=== PATIENT | female | born 1980 | race Caucasian/White ===

== ENCOUNTER 2016-09-13 10:22 | Observation (INO) | payer MEDICAID ==
[2016-09-13] MEDS ORDERED: LORazepam 1 MG TABLET ONE (10:45)
[2016-09-13 10:55] LABS: BASOPHILS 0.5 % (0.0-2.0); EOSINOPHILS 0.9 % (0.0-6.0); EOSINOPHILS# 0.1 X 10^3uL (0.0-0.4); HEMATOCRIT 46.7 % (36.0-48.0); HEMOGLOBIN 15.6 g/dL (12.0-16.0); LYMPHOCYTES 13.5 % (20.0-40.0); LYMPHOCYTES# 1.2 X 10^3uL (0.8-3.8); MEAN CELL VOLUME 90.8 fL (80.0-100.0); MEAN CORPUS. HGB CONCENTRATION 33.3 g/dL (32.0-36.0); MEAN CORPUSCULAR HEMOGLOBIN 30.2 pg (29.0-35.0); MEAN PLATELET VOLUME 7.9 fL (7.4-10.4); MONOCYTES 4.6 % (2.0-10.0); MONOCYTES# 0.4 X 10^3uL (0.2-1.0); NEUTROPHILS 80.5 % (54.0-75.0); NEUTROPHILS# 6.9 X 10^3uL (2.6-6.7); PLATELET COUNT 188 X 10^3uL (130-440); RED BLOOD COUNT 5.15 X 10^6uL (4.20-6.10); RED CELL DISTRIBUTION WIDTH 12.5 % (11.5-14.5); WHITE BLOOD COUNT 8.6 X 10^3uL (3.9-10.7)
[2016-09-13] MEDS ORDERED: ONDANSETRON HCL 4 MG/2 ML VIAL ONE (11:03)
[2016-09-13] MEDS ORDERED: DIPHENHYDRAMINE 50 MG/ML VIAL ONE (11:03)
[2016-09-13 11:21] LABS: ALBUMIN 3.8 g/dL (3.5-5.0); ALKALINE PHOSPHATASE 69 U/L (38-126); ALT 41 U/L (9-52); AST 27 U/L (14-36); BILIRUBIN, DIRECT 0.1 mg/dL (0.0-0.4); BILIRUBIN, TOTAL 0.7 mg/dL (0.2-1.3); BLOOD UREA NITROGEN 17 mg/dL (7-17); CALCIUM 8.8 mg/dL (8.4-10.2); CHLORIDE 110 mmol/L (98-107); EST GLOMERULAR FILTRATION RATE > 60 mL/min; GLUCOSE 122 mg/dL (70-100); LIPASE 42 U/L (23-300); POTASSIUM 4.2 mmol/L (3.5-5.1); SODIUM 139 mmol/L (137-145); TOTAL PROTEIN 6.9 g/dL (6.3-8.2)
[2016-09-13] MEDS ORDERED: NORMAL SALINE 250 ML IV ONE (11:53)
[2016-09-13] MEDS ORDERED: FAMOTIDINE IN SALINE, ISO-OSM 20 MG/50 ML PIGGYBACK IV ONE (12:25)
[2016-09-13] MEDS ORDERED: HOME MEDICATION LIST NEEDED 1 EA EACH MC ONE (14:15)
[2016-09-13] MEDS ORDERED: ONDANSETRON HCL 4 MG/2 ML VIAL IV PRN (14:17)
--- NOTE | 2016-09-13 14:39 | ER PHYSICIAN DOCUMENTATION ---
Physician Documentation [facility] Name:Marian Estevez Age:35 yrs Sex:Female :1980 Arrival Date:09/13/2016 Time:10:22 Bed3 Private MD: Chriss Galindo Disposition: 09/13/16 14:11 Admit ordered for Hung Laguna. Preliminary diagnosis are Intractable Vomiting - : due to Cyclic Vomiting, Dehydration, Abdominal Pain, Unspecified. - Bed requested for Medical/Surgical. - Condition is Fair. - Problem is new. - Symptoms have improved. 23 HR OBS Yes HPI: 09/13 10:30 This 35 yrs old Female presents to ER via Walk In with complaints of cd Intractable Vomiting. 10:30 The patient presents to the emergency department with nausea, that is severe, with cd vomiting, that is continuous, 20 times today, described as clear fluid, with associated abdominal pain, of the epigastric area, described as crampy, and does not radiate. Onset: The symptom(s)/episode began/occurred acutely, this morning. Possible causes: flare up of bowel problem, Patient has a history of Cyclic Vomiting. She states that this is typical for her and often requires admission.. The symptoms are aggravated by nothing. The symptoms are alleviated by nothing. Severity of symptoms: At their worst the symptoms were severe in the emergency department the symptoms are unchanged. The patient has experienced similar episodes in the past, and the symptoms today are exactly the same, to when the patient was apparently diagnosed with Cyclic Vomiting. DIRECTOR MEDIA: 11:10 LMP N/A - control method lpr Historical: - Allergies: No known drug Allergies; - Home Meds: 1. None - PMHx: cyclic vomiting; - PSHx: None; - Tetanus: unknown. - Ebola Screening: : No symptoms or risks identified at this time. . - Immunization history: Flu Vaccine unknown. - Social history: Smoking status: Patient states was never smoker of tobacco. ROS: 11:00 ENT: Negative for injury, pain, epistaxis and discharge. cd Neck: Negative for injury, pain, stiffness and swelling. Cardiovascular: Negative for chest pain, palpitations, edema and pleuritic pain. Respiratory: Negative for shortness of breath, dyspnea on exertion, cough, sputum production, wheezing, hemoptysis and pleuritic chest pain. Back: Negative for injury, pain or muscle spasms. : Negative for injury, bleeding, discharge, dysuria, frequency, urgency and swelling. MS/Extremity: Negative for injury, deformity, edema, calf tenderness, pain or coldness. Skin: Negative for injury, rash, itching and discoloration. 11:00 Neuro: Negative for weakness, numbness, tingling, and seizure. + headache cd 11:00 Constitutional: Positive for poor PO intake, Negative for chills, fever. 11:00 Abdomen/GI: Positive for abdominal pain, nausea, vomiting, abdominal cramps, anorexia, Negative for diarrhea, constipation, abdominal distension, hematemesis, black/tarry stool, rectal bleeding. 11:00 Psych: Positive for anxiety. 11:00 All other systems are negative. Exam: Head/Face: Normocephalic, atraumatic. Eyes: Pupils equal round and reactive to light, extra-ocular motions intact. Lids and lashes normal. Conjunctiva and sclera are non-icteric and not injected. Cornea within normal limits. Periorbital areas with no swelling, redness, or edema. ENT: Nares patent. No nasal discharge, no septal abnormalities noted. Tympanic membranes are normal and external auditory canals are clear. Oropharynx with no redness, swelling, or masses, exudates, or evidence of obstruction, uvula midline. Mucous membranes very dry. Neck: Trachea midline, no thyromegaly or masses palpated, and no cervical lymphadenopathy. Supple, full range of motion without nuchal rigidity, or vertebral point tenderness. No Meningismus. Respiratory: Lungs have equal breath sounds bilaterally, clear to auscultation and percussion. No rales, rhonchi or wheezes noted. No increased work of breathing, no retractions or nasal flaring. Back: No spinal tenderness. No costovertebral tenderness. Full range of motion. Skin: Warm, dry with normal turgor. Normal color with no rashes, no lesions, and no evidence of cellulitis. MS/ Extremity: Pulses equal, no cyanosis. Neurovascular intact. Full, normal range of motion. 11:00 Neuro: Awake and alert, GCS 15, oriented to person, place, time, and situation. cd Cranial nerves II-XII grossly intact. Motor strength 5/5 in all extremities. Sensory grossly intact. Cerebellar exam normal. Normal gait. 11:00 Constitutional: The patient appears alert, awake, non-diaphoretic, non-toxic, well developed, anxious, in obvious distress, severely distressed. 11:00 Cardiovascular: Rate: normal, Rhythm: regular, Pulses: no pulse deficits are appreciated, Heart sounds: normal. 11:00 Abdomen/GI: Inspection: abdomen appears normal, Bowel sounds: active, Palpation: mild abdominal tenderness, in the epigastric area, Indicators: McBurney's point is not tender, Cabezas's sign is negative. 11:00 Skin: Exam negative for acute changes. Vital Signs: 10:34 Pulse Ox 95% ; lpr 10:35 BP 116 / 56 (auto/); Pulse 50; Resp 15; Temp 97.3(O); Weight 68.04 kg (R); Height 5 ft. lpr 8 in. (172.72 cm) (R); Pain 10/10; 13:31 BP 153 / 77; Pulse 53; Resp 16; Pulse Ox 98% on 2 lpm NC; lpr 14:37 BP 116 / 70; Pulse 75; Resp 16; Pulse Ox 98% on 2 lpm NC; lp 10:35 Body Mass Index 22.81 (68.04 kg, 172.72 cm) lpr Sal[place] Coma Score: 11:00 Eye Response: spontaneous(4). Verbal Response: oriented(5). Motor Response: obeys cd commands(6). Total: 15. MDM: 10:24 Patient medically screened. cd 10:30 Data interpreted: Pulse oximetry: on room air is 98 %. Interpretation: normal. cd 11:00 Differential diagnosis: Nonspecific abd pain, gastritis, cholecystitis, pancreatitis, cd Acute Altitude Illness, Acute Exacerbation of Cyclic Vomiting, Severe Dehydration. 11:05 Data reviewed: vital signs, nurses notes, old medical records, and as a result, I will cd continue to observe the patient, administer IV fluids, NS bolus, NS maintenence, Zofran, Benadryl, Compazine, prescribe sedation medication, lorazepam. 14:00 Response to treatment: the patient's symptoms have markedly improved after treatment, cd and as a result, I will admit patient, patient doing better, very somnolent from the medication.. .states that it usually returns.. Physician consultation: Hung Laguna MD was called at 14:08, was contacted at 14:10, regarding admission, to the floor, consult, patient's condition, need to evaluate the patient as soon as possible, and will see patient in inpatient room, shortly, later today. 14:10 Counseling: I had a detailed discussion with the patient and/or guardian regarding: the cd historical points, exam findings, and any diagnostic results supporting the discharge/admit diagnosis, lab results, the need for further work-up and treatment in the hospital, risk of leaving the Emergency Department, without completed treatment. 14:20 Admission orders: after a detailed discussion of the patient's condition and case, the admit orders are written by me. 09/13 11:03 Order name: CBC AUTO DIF, MDIF/RMOR IF IND; Complete Time: 11:57 EDCT 09/13 11:57 Interpretation: Normal Except: NEUTROPHILS 80.5. 09/13 11:23 Order name: BASIC METABOLIC PANEL; Complete Time: 11:57 EDCT 09/13 11:57 Interpretation: Normal. 09/13 11:23 Order name: HEPATIC PANEL; Complete Time: 11:57 EDCT 09/13 11:57 Interpretation: Normal. 09/13 11:23 Order name: LIPASE; Complete Time: 11:57 EDCT 09/13 11:57 Interpretation: Normal. 09/13 11:42 Order name: HCG, SERUM; Complete Time: 11:57 EDCT 09/13 11:57 Interpretation: Normal. 09/14 00:53 Order name: URINE DRUG SCREEN, QUAL [facility] 09/13 10:28 Order name: NPO; Complete Time: 11:35 09/13 12:16 Order name: Oxygen; Complete Time: 12:46 cb Dispensed Medications: 10:48 Drug: Ativan 1 mg; Route: PO; lpr 12:46 Follow up: Response: Anxiety decreased rh 10:57 Drug: Zofran 4 mg; Route: IVP; Infused Over: 2 mins; Site: right antecubital; lpr 12:46 Follow up: Response: Nausea is decreased rh 10:57 Drug: NS 0.9% 1000 ml; Route: IV; Rate: bolus; Site: right antecubital; lpr 11:44 Follow up: IV Status: Completed infusion lpr 11:09 Drug: Benadryl 25 mg; Route: IVP; Site: right antecubital; lpr 12:46 Follow up: Response: No adverse reaction rh 11:44 Drug: Compazine 10 mg; Route: IVPB; Site: right antecubital; lpr 14:12 Follow up: IV Status: Completed infusion; IV Intake: 250ml rh 12:28 Drug: NS 0.9% 1000 ml; Route: IV; Rate: 150 ml/hr; Site: right antecubital; cb 12:28 Drug: Pepcid 20 mg; Route: IVPB; Site: right antecubital; cb 12:52 Follow up: IV Status: Completed infusion; IV Intake: 50ml cb Signatures: Berenice Leal RN RN cb Pavlish, Lena, RN RN lp Daley, Chris, MD MD cd Roberts, Leslie, RN RN lpr Amanda Velez rh
--- NOTE | 2016-09-13 14:39 | ER NURSING DOCUMENTATION ---
Nurse's Notes [facility] Name:Marian Estevez Age:35 yrs Sex:Female :1980 Arrival Date:09/13/2016 Time:10:22 Bed3 Private MD: Diagnosis:Intractable Vomiting-: due to Cyclic Vomiting;Dehydration;Abdominal Pain, Unspecified Presentation: 09/13 10:29 Acuity: DERIK 3 lpr 10:57 Presenting complaint: Patient states: arrived two days ago from [place]. Hx of cyclic lpr vomiting. Started this am. Diffuse abdominal pain with headache. Transition of care: patient was not received from another setting of care. 10:57 Method Of Arrival: Walk In lpr Triage Assessment: 10:59 General: Appears uncomfortable, Behavior is anxious. Pain: Complains of pain in lpr abdomen. EENT: Oral mucosa is dry. Neuro: Level of Consciousness is awake, alert, obeys commands, Oriented to person, place, time, event. Cardiovascular: Chest pain is denied. Respiratory: Airway is patent Respiratory effort is even, unlabored, Respiratory pattern is regular, symmetrical. GI: Reports nausea, vomiting. : No deficits noted. Derm: Skin is intact, is healthy with good turgor. Musculoskeletal: No deficits noted. [employer] WORKER: 11:10 LMP N/A - control method lpr Historical: - Allergies: No known drug Allergies; - Home Meds: 1. None - PMHx: cyclic vomiting; - PSHx: None; - Tetanus: unknown. - Ebola Screening: : No symptoms or risks identified at this time. . - Immunization history: Flu Vaccine unknown. - Social history: Smoking status: Patient states was never smoker of tobacco. Screenin:01 Infectious Disease Risk None. Abuse screen: Denies threats or abuse. Nutritional lpr screening: No deficits noted. Assessment: 11:01 GI: Reports intolerance of fluids, intolerance of food, nausea, vomiting. lpr 12:28 Reassessment: Patient states symptoms have improved. patient sleeping comfortably until cb Nurse check IV site.. Vital Signs: 10:34 Pulse Ox 95% ; lpr 10:35 BP 116 / 56 (auto/); Pulse 50; Resp 15; Temp 97.3(O); Weight 68.04 kg (R); Height 5 ft. lpr 8 in. (172.72 cm) (R); Pain 10/10; 13:31 BP 153 / 77; Pulse 53; Resp 16; Pulse Ox 98% on 2 lpm NC; lpr 14:37 BP 116 / 70; Pulse 75; Resp 16; Pulse Ox 98% on 2 lpm NC; lp 10:35 Body Mass Index 22.81 (68.04 kg, 172.72 cm) lpr Sal[place] Coma Score: 11:00 Eye Response: spontaneous(4). Verbal Response: oriented(5). Motor Response: obeys cd commands(6). Total: 15. ED Course: 10:23 Patient arrived in ED. dp 10:24 Chriss Tinsley MD is Attending Physician. cd 10:29 Triage completed. lpr 10:48 Inserted saline lock: 20 gauge in right antecubital area and blood collected. lpr 11:01 Valuables Remains with patient Patient has correct armband on for positive lpr identification. Bed in low position. Call light in reach. Side rails up X 1. 11:14 Report given to Amanda Velez RN. lpr 12:45 Amanda Velez is Primary Nurse. rh 14:10 Hung Laguna MD is Admitting Physician. cd Administered Medications: 10:48 Drug: Ativan 1 mg; Route: PO; lpr 12:46 Follow up: Response: Anxiety decreased rh 10:57 Drug: Zofran 4 mg; Route: IVP; Infused Over: 2 mins; Site: right antecubital; lpr 12:46 Follow up: Response: Nausea is decreased rh 10:57 Drug: NS 0.9% 1000 ml; Route: IV; Rate: bolus; Site: right antecubital; lpr 11:44 Follow up: IV Status: Completed infusion lpr 11:09 Drug: Benadryl 25 mg; Route: IVP; Site: right antecubital; lpr 12:46 Follow up: Response: No adverse reaction rh 11:44 Drug: Compazine 10 mg; Route: IVPB; Site: right antecubital; lpr 14:12 Follow up: IV Status: Completed infusion; IV Intake: 250ml rh 12:28 Drug: NS 0.9% 1000 ml; Route: IV; Rate: 150 ml/hr; Site: right antecubital; cb 12:28 Drug: Pepcid 20 mg; Route: IVPB; Site: right antecubital; cb 12:52 Follow up: IV Status: Completed infusion; IV Intake: 50ml cb Intake: 12:52 IV: 50ml; Total: 50ml. cb 14:12 IV: 250ml; Total: 300ml. rh Outcome: 14:11 Decision to Admit by Provider. cd 14:37 Admitted to Med/surg accompanied by nurse, via stretcher, with oxygen, with chart. lp 14:37 Condition: stable 14:37 Discharge Assessment: Patient alert. 14:37 Instructed on need to admit 14:38 Patient left the ED. lp Signatures: Berenice Leal, RN Mis Boateng cb, RN RN Chriss Torre MD MD cd Roberts, Leslie, RN RN lpr Hofsess, Rachel rh Shannan Beebe
[2016-09-13] MEDS: NORMAL SALINE 1,000 ML IV SCH ×2 (15:41→21:05)
[2016-09-14] MEDS: NORMAL SALINE 1,000 ML IV SCH (03:27)
[2016-09-14 03:55] VITALS: O2SAT 96
[2016-09-14 09:37] VITALS: BP 118/73; PULSE 73; RESP 16; TEMP 99.1
--- NOTE | 2016-09-14 18:26 | SHORT STAY SUMMARY ---
DATE OF ADMISSION: 09/13/16 DATE OF DISCHARGE: 09/14/16 ATTENDING PHYSICIAN: Hung Laguna MD CHIEF COMPLAINT: Cyclic vomiting. HISTORY OF PRESENT ILLNESS: Patient is a 35-year-old female who has a 3-year history of cyclic vomiting occurring q.6 weeks and typically lasting 5-6 days if untreated. If treated, it typically lasts about 1 day. She has had an extensive evaluation back home for this and etiology remains unclear. Yesterday , prior to admission, patient had 15-20 episodes of dry heaves, but no actual vomiting. Did have nausea. Unable to keep any fluids down. No fevers, chills, diarrhea, constipation, melena, hematochezia, dysuria, vaginal discharge. She has epigastric abdominal discomfort related to the dry heaves, non-radiating. Symptoms are similar to what she has had in the past. She states that she last smoked marijuana 1 month ago. In the Emergency Room, acyclic vomiting was treated with Ativan 1 mg p.o., Zofran 4 mg IV, Benadryl 25 mg IV, Compazine 10 mg IV, Pepcid 20 mg IV and IV hydration. This led to profound hypersomnolence prompting admission. Patient was kept hydrated during the night, and she had no further issues with vomiting and no further nausea the following day. She felt back to her normal self, although she did have epigastric discomfort due to the dry heaves. She was not concerned and she did not feel that this was serious and strongly desired to be released at this point. I did point out that marijuana usage can be a contributor to cyclic vomiting, and I strongly encouraged complete sobriety in this regard. ALLERGIES: None. MEDICATIONS: None. PAST SURGICAL HISTORY: Negative. PAST MEDICAL HISTORY 1. Cyclic vomiting x3 years. 2. Seasonal allergic rhinitis. SOCIAL HISTORY: Single, 1 child (we contacted Child Protective Services to check on this child and he seemed to be doing just fine). 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 She smokes 1 pack per day and I encouraged smoking cessation. No alcohol. Rare use of marijuana, and she states that she last used marijuana 1 month ago. FAMILY HISTORY: Father with diabetes. Grandmother with heart disease. REVIEW OF SYSTEMS: No heart, lung, kidney, liver, diabetes, thyroid, seizures, peptic ulcer disease, hypertension, hyperlipidemia, skin, allergy or bleeding disorders. Nocturia x3. PREVENTATIVE HEALTH: Patient declines flu shots. PHYSICAL EXAMINATION I attempted to see the patient 3 times yesterday, but she was extremely somnolent. She would open up her eyes briefly, and then she would fall back to sleep when I tried to awaken her. I checked with nursing staff and I elected to see the patient today instead, in that I was unable to obtain a history from the patient at that time. GENERAL: Well-nourished, well-developed, NAD, alert and oriented x3. She is fully awake and alert at this point. HEENT: EOMI. Pupils equally round. Normal conjunctivae. No coryza. Pharynx not injected. NECK: No lymphadenopathy. No thyromegaly. No carotid bruits. Neck supple. CHEST: Clear. No rales, rhonchi or wheezes. Good breath sounds and symmetry throughout. COR: RRR without murmurs, gallops, rubs or clicks. No jugular venous distention. No ectopy. ABDOMEN: Soft, mild to moderate epigastric tenderness on deep palpation with some guarding. No hepatosplenomegaly. No masses. No bruits. No inguinal nodes. Bowel sounds present. Patient feels that her abdominal symptoms are completely related to the dry heaves and do not represent anything more significant such as peptic ulcer disease. LOWER EXTREMITIES: No edema. Good peripheral pulses. Normal skin turgor. NEUROLOGIC: Cranial nerves 2-12 intact. Motor 5/5. Sensory intact. LABORATORY DATA: White blood cell count 8.6, hemoglobin and hematocrit 15.6/46.7 , platelets 188,000. Sodium 139, potassium 4.2, chloride 110, CO2 23, BUN 17, creatinine 0.7, glucose 122, calcium 8.8, total bilirubin 0.7, AST 27, ALT 41, alkaline phosphatase 69, total protein 6.9. Albumin 3.8, lipase 42, serum test, negative. Urine drug screen was positive for Benzodiazepines ( given in the Emergency Room) and marijuana. ASSESSMENT 1. Cyclic vomiting. 2. Hypersomnolence secondary to medications given in the Emergency Room. DISCHARGE INSTRUCTIONS: Patient may participate in activities as able. She is on a regular diet. She will follow up with her regular physician in the next week. I again emphasized the importance of complete sobriety with respect to marijuana. MEDICATIONS: None. She declines antiemetics. JAMES
== END 2016-09-14 09:30 | disposition home or self-care (01) ==
LOC: ER 10:22 → IN 14:32
PROVIDERS: ADMIT Family Medicine; ATTEND Family Medicine
DX: K31.89 Other diseases of stomach and duodenum (principal); R11.10 Vomiting, unspecified; J30.2 Other seasonal allergic rhinitis; E86.0 Dehydration; Z72.0 Tobacco use
CPT/HCPCS: 80048; 80076; 80305; 83690; 84703; 85025; 96365; 96367; 96368; 96375; 99285; G0378; J1200; J2405; J7030; J7050